=== PATIENT | female | born 1950 | race Caucasian/White ===

== ENCOUNTER 2021-11-13 20:25 | Inpatient (IN) | payer MEDICARE, SELFPAY ==
--- NOTE | 2021-11-13 20:27 | XRR_ITS ---
PROCEDURE INFORMATION: Exam: XR Right Hip Exam date and time: 11/13/2021 8:36 PM Age: 71 years old Clinical indication: Hip pain; Right hip; Additional info: Hip pain, fall TECHNIQUE: Imaging protocol: XR Right hip. Views: 1 view hip with pelvis when performed. COMPARISON: No relevant prior studies available. FINDINGS: Bones/joints: There is cortical irregularity at the right femoral head neck junction suspicious for probable femoral neck fracture. Assessment is limited due to suboptimal projection. No obvious dislocation. Right hip joint space is maintained on this nonweightbearing exam. Mild acetabular spurring. Probable osteopenia. Soft tissues: Unremarkable. Other findings: Two views submitted. XR/XR hip RT 2-3V wo/w pel* [id number] IMPRESSION: Somewhat limited exam with probable right femoral neck fracture. CT correlation is recommended.
[2021-11-13 20:29] VITALS: BP 158/80; PULSE 92; RESP 20; TEMP 37.1; O2SAT 98; BMI 30.5
--- NOTE | 2021-11-13 20:39 | ED_ITS ---
HPI - General Adult General: Chief complaint: Fall Stated complaint: FALL RIGHT HIP PAIN Time Seen by Provider: 11/13/21 20:27 History of Present Illness: 71-year-old female with no known past medical history presented to emergency room after a ground-level fall which occurred in 1917. Patient tells me that she was working when she slipped and fell onto the right side. Patient denies any head injury, denies any anticoagulation use. Since then, pain, pain has been complaining of right-sided hip pain. Patient has not been on ambulate. Denies any associated chest pain, shortness, palpitations or lightheadedness before the episode of fall. Onset:715pm Duration:ongoing Location:home Severity:moderate Associated symptoms: Deny chest pain, dyspnea, nausea, rash, palpitations or vomiting Review of Systems Const: Denies: fever(s) or chills Eyes: Denies: change in vision ENMT: Denies: mouth pain Card: Denies: chest pain or palpitations Resp: Denies: dyspnea or non-productive cough GI: Denies: abdominal pain, nausea, vomiting or diarrhea : Denies: dysuria Musc: Reports: extremity pain (+r hip pain) Skin/Breast: Denies: rash or new lesions Neuro: Denies: weakness in extremities Psych: Reports: other (Normal mood) Adal/Lymph: Denies: easy bruising PFS ED PFSH: Medical History HTN (hypertension) No pertinent past medical history Psoriasis Surgical History No history of previous surgery Family History Denies family history of Diabetes Cancer Social History Smoking and tobacco status: never smoked Alcohol intake: never Physical Exam Const: COMMON NORMALS: alert HENMT: COMMON NORMALS: atraumatic HEAD & SCALP: atraumatic MOUTH: moist mucous membranes not abnormal Eye: COMMON NORMALS: EOMs intact bilaterally and conjunctivae normal CONJUNCTIVA: Yes conjunctivae normal Neck/C-Spine: COMMON NORMALS: full ROM and supple Resp: COMMON NORMALS: normal respiratory effort and clear to auscultation bilaterally AUSCULTATION: clear to auscultation bilaterally Cardio: COMMON NORMALS: regular rate RATE: regular rate GI: COMMON NORMALS: Soft to palpation and non-tender PALPATION: Yes Soft to palpation Extremity: NARRATIVE EXTREMITY EXAM: + Decreased range of motion right hip due to pain, right leg rotated and shortened, 2+ DP/PT pulses in the affected extremity, neurovascular sensation intact in the right lower extremity Neuro: SENSORIUM/ORIENTATION: Yes alert MOTOR EXAM: No Abnormal motor strength present and Other motor observations present (no focal motor deficits) Psych: COMMON NORMALS: speech normal SPEECH: Yes normal speech MOOD & AFFECT: Yes euthymic mood Course Vital Signs: Vital signs: Vital Signs Temperature 98.0 F 11/16/21 07:52 Pulse Rate 80 11/16/21 10:09 Respiratory Rate 17 11/16/21 07:52 Blood Pressure 125/77 11/16/21 10:09 Pulse Oximetry 93 11/16/21 07:52 MDM - General Adult Medical Decision Making 71-year-old female presenting to the emergency room with concerns for right hip pain after an episode mechanical fall. Patient has a shortened externally rotated right leg with decreased range of motion right hip. Patient is neurovascularly intact in the right lower extremity. X-ray showed possible R sided femoral neck fx. CT showed acute findings femoral neck fracture. Case was discussed with Dr. Fontenot who will evaluate patient tomorrow morning. Preop labs ordered. Disposition: admission Lab Data : 11/16/21 05:19 11/15/21 02:34 Radiology Impressions Hip/Pelvis X-Ray 11/13/21 20:27 IMPRESSION: Somewhat limited exam with probable right femoral neck fracture. CT correlation is recommended. Hip CT 11/13/21 21:43 IMPRESSION: 1. Acute femoral neck fracture as described. 2. Other nonacute findings as described above Hip X-Ray 11/15/21 09:40 IMPRESSION: 1. Right total hip prosthesis in place. Laboratory Results WBC 8.6 10^3/uL (4.0-10.0) 11/13/21 20:35 RBC 4.69 10^6/uL (4.1-5.3) 11/13/21 20:35 Hgb 13.6 g/dL (11.5-15.3) 11/13/21 20:35 Hct 41.2 % (37.0-47.0) 11/13/21 20: MCV 87.8 fl (81-99) 11/13/21 20: MCH 29.0 pg (28.0-34.0) 11/13/21 20: MCHC 33.0 g/dL (30.0-36.0) 11/13/21 20: RDW 13.0 % (12.1-15.1) 11/13/21 20:35 Plt Count 236 10^3/cmm (130-400) 11/13/21 20:35 MPV 11.1 fL (7.4-10.4) H 11/13/21 20:35 Neut % (Auto) 49.0 % 11/13/21 20: Lymph % (Auto) 33.5 % 11/13/21 20:35 [place] % (Auto) 10.9 % 11/13/21 20:35 Eos % (Auto) 5.4 % 11/13/21 20:35 Baso % (Auto) 0.6 % 11/13/21 20:35 Neut # (Auto) 4.20 10^3/uL (1.8-7.7) 11/13/21 20:35 Lymph # (Auto) 2.9 10^3/uL (0.8-4.8) 11/13/21 20:35 [place] # (Auto) 0.9 10^3/uL (0.2-0.9) 11/13/21 20:35 Eos # (Auto) 0.5 10^3/uL (0.0-0.8) 11/13/21 20:35 Baso # (Auto) 0.1 10^3/uL (0.0-0.1) 11/13/21 20:35 Nucleated RBC % (auto) 0 % 11/13/21: Nucleated RBCs # 0.0 /100WBC 11/13/21 20: PT 13.10 SECONDS (12.1-14.9) 11/13/21 20:35 INR 0.96 (0.8-1.2) 11/13/21 20:35 APTT 27.9 SECONDS (23.9-36.7) 11/13/21 20:35 Sodium 138 mmol/L (136-145) 11/13/21 20:35 Potassium 3.5 mmol/L (3.5-5.1) 11/13/21 20:35 Chloride 101 mmol/L (98-107) 11/13/21 20:35 Carbon Dioxide 25 mmol/L (22-29) 11/13/21 20:35 Anion Gap 15.5 (5-19) 11/13/21 20:35 BUN 18 mg/dL (8-23) 11/13/21 20:35 Creatinine 0.8 mg/dL (0.5-0.9) 11/13/21 20:35 GFR Calculation 70.9 mL/min (90-130) L 11/13/21 20:35 Glucose 99 mg/dL (65-115) 11/13/21 20:35 Calculated Osmolality 288 mOsm/kg (285-295) 11/13/21 20:35 Calcium 10.0 mg/dL (8.5-10.5) 11/13/21 20:35 Imaging Data Other Imaging: Radiologist's impression: [facility] [address] [address] Scan Report Signed Patient: ESTRELLA TEAGUE Unit #: [id number] : 1950 Age/Sex: 71 / F ADM Date: 11/13/21 Loc: ER Room/Bed: Attending Dr: Ordering Provider/Ordering MD: Ani Gonzalez MD Date of Service: 11/13/21 Procedure(s): CT hip RT wo con* [id number] Accession Number(s): [id number] Report Number: [id number] PROCEDURE INFORMATION: Exam: CT Right Lower Extremity Without Contrast, Hip Exam date and time: 11/13/2021 10:02 PM Age: 71 years old Clinical indication: Injury or trauma; Fall; Blunt trauma; Right; Patient HX: Patient fell from standing onto RT hip. C/O pain. Suspected femoral neck fracutre on xray. ; Additional info: Eval FX TECHNIQUE: Imaging protocol: CT of the Right lower extremity without contrast was performed. Exam focused on the hip. Radiation optimization: All CT scans at this facility use at least one of these dose optimization techniques: automated exposure control; mA and/or kV adjustment per patient size (includes targeted exams where dose is matched to clinical indication); or iterative reconstruction. COMPARISON: CR (PELVIS, ) 11/13/2021 8:36 PM RADIATION DOSE METRICS: Total DLP (mGy-cm): 1804.9 FINDINGS: Bones/joints: Well maintained hip joint space on this nonweightbearing exam. Hip joint small osteophytes compatible with osteoarthritis. There is an acute fracture in an oblique orientation in the coronal plane, at the lateral aspect of the femoral head neck junction extending medially to the mid femoral neck. There is minimal impaction and minimal displacement. No dislocation or significant angulation. No other acute displaced fracture is seen in the partially visualized portion of bony pelvis. Probable osteopenia.? Small chronic enthesophytes are present at the ischial tuberosity and greater trochanter.? Chronic sclerosis of the symphysis pubis. Soft tissues: Normal. CT/CT hip RT wo con* [id number] IMPRESSION: 1. Acute femoral neck fracture as described. 2. Other nonacute findings as described above ? Dictated By: Erlinda Christine MD Signed By: Erlinda Christine MD Signed Date/Time: 11/13/212219 DD/ 01 Discharge Plan Discharge Patient Disposition: Admitted As Inpatient Admit Provider: George Yanes Clinical Impression: Acute pain of right hip, Femoral neck fracture Condition: Stable Discharge Diet: Advance as tolerated Discharge Activity: Limit activity as instructed Coding Level of Care Code ED Ui Software Engineer for g Fwd Exam Comprehensive
--- NOTE | 2021-11-13 20:41 | ECG_ITS ---
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 Measurements Intervals [place] Rate: 85 P: 64 NV: 195 QRS: 68 QRSD: 77 T: 64 QT: 369 QTc: 439 Interpretive Statements SINUS RHYTHM No previous ECG available for comparison Electronically Signed On 11-14-2021 22:18:51 CDT by Rivera Patel M.D. [id number]
[2021-11-13 20:50] LABS: Basophils # 0.1 10^3/uL (0.0-0.1); Basophils % 0.6 %; Eosinophils # 0.5 10^3/uL (0.0-0.8); Eosinophils % 5.4 %; Hematocrit 41.2 % (37.0-47.0); Hemoglobin 13.6 g/dL (11.5-15.3); Lymphocytes # 2.9 10^3/uL (0.8-4.8); Lymphocytes % 33.5 %; Mean Corpuscular Volume 87.8 fl (81-99); Mean Platelet Volume 11.1 fL (7.4-10.4); Monocytes # 0.9 10^3/uL (0.2-0.9); Monocytes % 10.9 %; Nucleated Red Blood Cells % 0 %; Platelet Count 236 10^3/cmm (130-400); Red Blood Count 4.69 10^6/uL (4.1-5.3); White Blood Count 8.6 10^3/uL (4.0-10.0)
[2021-11-13 20:52] VITALS: BP 137/93; PULSE 85; RESP 17; O2SAT 99
[2021-11-13 21:17] LABS: INR 0.96 (0.8-1.2); Partial Thromboplastin Time 27.9 SECONDS (23.9-36.7)
[2021-11-13 21:29] LABS: Anion Gap 15.5 (5-19); Blood Urea Nitrogen 18 mg/dL (8-23); Carbon Dioxide 25 mmol/L (22-29); Chloride 101 mmol/L (98-107); Glomerular Filtration Rate 70.9 mL/min (90-130); Glucose 99 mg/dL (65-115); Osmolality Calculated 288 mOsm/kg (285-295); Potassium 3.5 mmol/L (3.5-5.1); Sodium 138 mmol/L (136-145)
--- NOTE | 2021-11-13 21:43 | CTR_ITS ---
PROCEDURE INFORMATION: Exam: CT Right Lower Extremity Without Contrast, Hip Exam date and time: 11/13/2021 10:02 PM Age: 71 years old Clinical indication: Injury or trauma; Fall; Blunt trauma; Right; Patient HX: Patient fell from standing onto RT hip. C/O pain. Suspected femoral neck fracutre on xray. ; Additional info: Eval FX TECHNIQUE: Imaging protocol: CT of the Right lower extremity without contrast was performed. Exam focused on the hip. Radiation optimization: All CT scans at this facility use at least one of these dose optimization techniques: automated exposure control; mA and/or kV adjustment per patient size (includes targeted exams where dose is matched to clinical indication); or iterative reconstruction. COMPARISON: CR (PELVIS, ) 11/13/2021 8:36 PM RADIATION DOSE METRICS: Total DLP (mGy-cm): 1804.9 FINDINGS: Bones/joints: Well maintained hip joint space on this nonweightbearing exam. Hip joint small osteophytes compatible with osteoarthritis. There is an acute fracture in an oblique orientation in the coronal plane, at the lateral aspect of the femoral head neck junction extending medially to the mid femoral neck. There is minimal impaction and minimal displacement. No dislocation or significant angulation. No other acute displaced fracture is seen in the partially visualized portion of bony pelvis. Probable osteopenia. Small chronic enthesophytes are present at the ischial tuberosity and greater trochanter. Chronic sclerosis of the symphysis pubis. Soft tissues: Normal. CT/CT hip RT wo con* [id number] IMPRESSION: 1. Acute femoral neck fracture as described. 2. Other nonacute findings as described above
--- NOTE | 2021-11-13 22:17 | P.HP_ITS ---
Providers/Chief Complaint Primary Care Provider: Leda Guillen DO Chief Complaint: FALL RIGHT HIP PAIN History of Present Illness ESTRELLA TEAGUE is a 71 year old female who does not have significant past medical history presented today with chief complaint of sustaining a fall. 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 She fell on her right side and immediately experienced excruciating pain which prompted her visit to the ER. In the ER she was diagnosed with right hip fracture. Dr. Fontenot consulted and recommended admission to the hospital service. At the time my evaluation patient was not complaining of any complaints, during my clinical evaluation I noticed cardiac murmur systolic in nature and psoriasis which patient endorsed as well. Patient is stating that she has led a very healthy life the only diagnosis she remembers is hypertension. When I questioned her regarding cardiac murmur she said she was told about it in the past but never had any problems secondary to any valvular murmur. She is denying any Previous history of CHF, NM, diabetes. Hip CT scan showing femoral neck fracture We will request echo She was given morphine in the ER Requested Bustillo catheter placement Review of Systems Const: Denies: chills Eyes: Denies: change in vision ENMT: Denies: throat pain Card: Denies: chest pain Resp: Denies: dyspnea GI: Denies: abdominal pain : Denies: flank pain Musc: Denies: neck pain Skin/Breast: Denies: rash Neuro: Denies: headache(s) Psych: Denies: anxiety Endo: Denies: polyuria Adal/Lymph: Denies: easy bruising All/Imm: Denies: urticaria Medications/Allergies Home Medications Medication Instructions Recorded Confirmed Last Taken Type albuterol sulfate 0.63 mg/3 mL 0.63 mg INHALATION Q6H PRN 11/13/21 11/13/21 Unknown History solution for nebulization albuterol sulfate 90 mcg/actuation 2 puff INHALATION QID PRN 11/13/21 11/13/21 Unknown History aerosol inhaler (ProAir HFA) amlodipine 10 mg tablet 10 mg PO DAILY 11/13/21 11/13/21 11/13/21 History aspirin 81 mg tablet,delayed 81 mg PO DAILY 11/13/21 11/13/21 11/13/21 History release cholecalciferol (vitamin D3) 25 25 mcg PO DAILY 11/13/21 11/13/21 11/13/21 History mcg (1,000 unit) capsule (Vitamin D3) hydrochlorothiazide 25 mg tablet 25 mg PO DAILY 11/13/21 11/13/21 11/13/21 History Allergies Allergy/AdvReac Type Severity Reaction Status Date / Time No Known Allergies Allergy Verified 11/13/21 21:14 PFSH Acute PFSH: Medical History HTN (hypertension) No pertinent past medical history Psoriasis Surgical History No history of previous surgery Family History Denies family history of Diabetes Cancer Social History Smoking and tobacco status: never smoked Alcohol intake: never Substance/Drug Use: never Vitals/I&O/Wt Last Vital Signs Temp 98.7 F 11/13/21 20:29 Pulse 85 11/13/21 20:52 Resp 17 11/13/21 20:52 BP 137/93 11/13/21 20:52 Pulse Ox 99 11/13/21 20:52 Weight last 48 hrs Weight 88.451 kg Physical Exam Narrative: Very pleasant elderly female Euvolemic No signs of heart failure Psoriasis plaques noted on extremities Dry skin EOMI, PERRLA Nonfocal neuro exam S1, S2 systolic murmur grade 2/6 right second intercostal space No signs of heart failure Breathing well on room air Saturating well no adventitious rhonchi or crackles Abdomen is soft, Nonfocal neuro exam very pleasant and cooperative Data : 11/13/21 20:35 11/13/21 20:35 A&P Assessment and plan (1) Hip fracture: Status: Acute (2) Femoral neck fracture: Status: Acute Plan Right hip fracture No signs of vascular compromise of the right lower extremity Psoriasis plaque noted Cardiac murmur appreciated during clinical exam Will request echo No previous history of surgeries RCRI class I risk No need of preop cardiac work-up patient is very active for her age, Coagulation profile N.p.o. IV fluid hydration Bustillo catheter placement PT evaluation after surgery DVT prophylaxis SCDs Dr. Fontenot consulted Continue amlodipine Hold hydrochlorothiazide Full code N.p.o. Attestations Medical Necessity Statement*: For hip fracture intervention patient will need more than 2 midnight stay in the hospital Time Spent in Patient Care: 40min Coding Level of Care Code Acute Box Blank Machine Feeder for Anahy Fwd Diagnoses Hip fracture S72.009A Femoral neck fracture S72.009A
[2021-11-13 23:42] VITALS: BMI 33.2
[2021-11-14] VITALS (10 sets, daily range): BP systolic 122–163; BP diastolic 66–89; PULSE 74–84; RESP 14–18; TEMP 36.6–37.4; O2SAT 92–96
--- NOTE | 2021-11-14 00:19 | USCV_ITS ---
ESTRELLA TEAGUE Age: 71 Gender: F : 1950 Exam Date: 11/14/2021 01:14 Ordering Phys: George Yanes MD Technologist: JESSICA [place] [facility] [place]: aortic murmur on exam BP: / HR: 90 Rhythm: Sinus Technical Quality: Adequate MEASUREMENTS (Male / Female) Normal Values 2D ECHO LV Diastolic Diameter PLAX 4.5 cm 4.2 - 5.9 / 3.9 - 5.3 cm LV Systolic Diameter PLAX 3.0 cm IVS Diastolic Thickness 1.3 cm 0.6 - 1.0 / 0.6 - 0.9 cm IVS Systolic Thickness 1.7 cm LVPW Diastolic Thickness 1.6 cm 0.6 - 1.0 / 0.6 - 0.9 cm LVPW Systolic Thickness 1.8 cm LVOT Diameter 1.9 cm LV Ejection Fraction 2D Teich 45.7 % LV Ejection Fraction MOD 2C 57.9 % LV Ejection Fraction 2C AL 58.6 % LA Diameter 3.9 cm LA Width 4.3 cm LA Height 4.6 cm RA Width 3.0 cm RA Height 5.0 cm Aorta at Sinotubular Diameter 2.2 cm M-MODE Aortic Annulus Diameter 1.9 cm LA Ao Ratio MM 2.0 MV E Point Septal Separation 0.2 cm DOPPLER AV Peak Velocity 223.7 cm/s LVOT Peak Velocity 105.0 cm/s AV Area Cont Eq vti 2.3 cm squared AV Area Cont Eq pk 1.3 cm squared MV Peak Velocity 119.0 cm/s MV Area PHT 3.7 cm squared Mitral E to A Ratio 0.8 MV E' Velocity 48.5 cm/s Mitral E to MV E' Ratio 12.9 Mitral E to LV E' Lateral Ratio 13.2 Mitral E to LV E' Septal Ratio 12.5 TR Peak Velocity 233.0 cm/s TR Peak Gradient 21.7 mmHg TR Mean Velocity 125.2 cm/s TR Mean Gradient 8.1 mmHg TR Velocity Time Integral 46.3 cm Right Atrial Pressure 10.0 mmHg Pulmonary Artery Systolic Pressu 31.7 mmHg PV Peak Velocity 103.7 cm/s RV Acceleration Time 0.1 s RV Ejection Time 0.3 s RV AcT/ET 0.3 FINDINGS Left Ventricle Normal left ventricular size. LV systolic function is normal with EF of 55-60%. No regional wall motion abnormalities. Grade 1 diastolic dysfunction Right Ventricle The right ventricle is normal in size and function. Right Atrium The right atrium is normal in size. Left Atrium The left atrium is normal in size. Mitral Valve Mild mitral annular calcification without significant stenosis or prolapse. There is trace mitral regurgitation. Aortic Valve Not well visualized. Mild aortic stenosis with mean gradient across the aortic valve of 11mmHg. There is no aortic regurgitation. Tricuspid Valve Structurally normal tricuspid valve without significant stenosis or regurgitation. Insufficient TR jet to calculate RVSP Pulmonic Valve Not well visualized Pericardium Normal pericardium without effusion. Aorta Normal ascending aorta dimension. CONCLUSIONS LV systolic function is normal with EF of 55-60% Grade 1 diastolic dysfunction Mild mitral annular calcification. Trace mitral regurgitation Mild aortic stenosis No comparison studies are available Rivera Patel MD (Electronically Signed) Final Date: 14 November 2021 13:43 S
[2021-11-14] MEDS: sodium chloride 0.9% 1,000 ML 75 ML IV (06:04)
[2021-11-14 06:23] LABS: Basophils % 0.3 %; Eosinophils # 0.3 10^3/uL (0.0-0.8); Eosinophils % 3.5 %; Hematocrit 39.1 % (37.0-47.0); Lymphocytes # 1.9 10^3/uL (0.8-4.8); Lymphocytes % 20.3 %; Mean Corpuscular HGB Conc 33.2 g/dL (30.0-36.0); Mean Corpuscular Hemoglobin 29.4 pg (28.0-34.0); Mean Corpuscular Volume 88.5 fl (81-99); Mean Platelet Volume 11.6 fL (7.4-10.4); Monocytes # 0.9 10^3/uL (0.2-0.9); Monocytes % 9.8 %; Neutrophils # 6.18 10^3/uL (1.8-7.7); Neutrophils % 65.9 %; Nucleated Red Blood Cells % 0 %; Platelet Count 205 10^3/cmm (130-400); Red Blood Count 4.42 10^6/uL (4.1-5.3); Red Cell Distribution Width 12.9 % (12.1-15.1); White Blood Count 9.4 10^3/uL (4.0-10.0)
[2021-11-14 06:44] LABS: Anion Gap 17.3 (5-19); Blood Urea Nitrogen 15 mg/dL (8-23); Calcium 9.2 mg/dL (8.5-10.5); Carbon Dioxide 22 mmol/L (22-29); Chloride 102 mmol/L (98-107); Glucose 110 mg/dL (65-115); Osmolality Calculated 287 mOsm/kg (285-295); Potassium 3.3 mmol/L (3.5-5.1); Sodium 138 mmol/L (136-145)
[2021-11-14] MEDS: amlodipine 10 mg Tablet PO (08:09)
[2021-11-14 08:10] LABS: Fibrinogen 334 mg/dL (174-498); Platelet Count 205 10^3/cmm (130-400)
--- NOTE | 2021-11-14 10:05 | PM.CONSULT ---
Providers/Reason For Consult Consulting Physician/Specialty*: Lui Fontenot MD; orthopedic surgery Reason for Consult*: Right hip fracture Attending Physician: Tez Metzger MD Primary Care Provider: Leda Guillen DO History of Present Illness History of Present Illness ESTRELLA TEAGUE is a 71 year old female who apparently fell yesterday evening on a wet floor at home with immediate pain and inability to bear weight on her right hip. She was transferred to our emergency room where radiographs revealed a right femoral neck fracture. States prior to this she was very active. She was a online health and fitness coach. Fully ambulatory about her home and community and enjoyed working. No previous history of extremity pain Medications/Allergies Home Medications Medication Instructions Recorded Confirmed Last Taken Type albuterol sulfate 0.63 mg/3 mL 0.63 mg INHALATION Q6H PRN 11/13/21 11/13/21 Unknown History solution for nebulization albuterol sulfate 90 mcg/actuation 2 puff INHALATION QID PRN 11/13/21 11/13/21 Unknown History aerosol inhaler (ProAir HFA) amlodipine 10 mg tablet 10 mg PO DAILY 11/13/21 11/13/21 11/13/21 History aspirin 81 mg tablet,delayed 81 mg PO DAILY 11/13/21 11/13/21 11/13/21 History release cholecalciferol (vitamin D3) 25 25 mcg PO DAILY 11/13/21 11/13/21 11/13/21 History mcg (1,000 unit) capsule (Vitamin D3) hydrochlorothiazide 25 mg tablet 25 mg PO DAILY 11/13/21 11/13/21 11/13/21 History Allergies Allergy/AdvReac Type Severity Reaction Status Date / Time No Known Allergies Allergy Verified 11/13/21 21:14 Current Medications Generic Name Dose Route Start Last Admin Trade Name Freq PRN Reason Stop Dose Admin Amlodipine Besylate 10 mg 11/14/21 09:00 11/14/21 08:09 Amlodipine 10 Mg Tablet PO 10 mg DAILY MINA Administration Sodium Chloride 1,000 mls @ 75 mls/hr 11/14/21 07:00 11/14/21 06:04 Sodium Chloride 0.9% IV 75 mls/hr .[id number] MINA Administration Senna/Docusate Sodium 1 tab 11/14/21 09:00 11/14/21 08:09 Sennosides-Docusate Tablet PO Not Given DAILY MINA PFSH Acute PFSH: Medical History HTN (hypertension) No pertinent past medical history Psoriasis Surgical History No history of previous surgery Family History Denies family history of Diabetes Cancer Social History Smoking and tobacco status: never smoked Alcohol intake: never Substance/Drug Use: never Vitals/I&O/Wt Last Vital Signs Temp 97.9 F 11/14/21 03:51 Pulse 84 11/14/21 09:28 Resp 17 11/14/21 09:28 BP 156/83 11/14/21 03:51 Pulse Ox 94 11/14/21 09:28 11/13/21 11/14/21 11/14/21 22:59 06:59 14:59 Output Total 800 / 800 Balance -800 / -800 Weight last 48 hrs Weight 212 lb Weight 195 lb Physical Exam Narrative: Is supine in the bed. She is pleasant to conversation. She is alert and oriented to person place and time and answers questions appropriately. She has slight shortening and external rotation of the right hip. He has pain with any internal and external rotation of the right hip. He has a strong palpable dorsalis pedis pulse. Will flex and extend her toes and her ankle on the right. Sensation is intact to light touch. Urinary Catheter Management: Bustillo: Cath Placed During This Visit: yes Reason for Continuing Indwelling Catheter: Required Immobilization for Trauma or Surgery or Anesthesia Urinary Catheter Date of Insertion: 11/14/21 Urinary Catheter Time of Insertion: 00:41 Data : 11/14/21 05:18 11/14/21 05:18 Xray Ortho: My impression: 2 views of the right hip are the interpreted dated 11/13/2021. The patient has a tear of the right femoral neck. Displacement is difficult to determine on plain radiographs Other CT: My impression: CT scan is reviewed of the right hip. The patient has a fracture of the femoral neck. The fracture is impacted and significant valgus and a posterior angulation. A&P Assessment and plan (1) Femoral neck fracture: I discussed management of displaced femoral neck fracture is in active individuals the patient and her immediate family in the room. I told her that we could consider open reduction internal fixation with pins however with the degree of displacement I think there is a high risk of nonunion malunion and avascular necrosis. This also require prolonged period of limited weightbearing. Typically bipolar arthroplasty is an option for more elderly people however Estrella is extremely active and I am not certain that would be the best option in relieving all of her pain. I discussed total hip arthroplasty with the patient models. I made her aware of risk with the procedure. I made aware of the postoperative recovery. I discussed requirements for postoperative exercise/rehabilitation program. I discussed risk of a possible instability or dislocation. I discussed the possibility of continued pain. I discussed risk of component failure loosening the need for revision. I discussed the magnitude of the procedure with the patient. I made them aware of risk of surgery to possibility continued pain. I discussed risk of bleeding and infection. I made them aware that infection could result in removal of the components and extensive reconstruction procedures. I discussed risk of deep venous thromboses and pulmonary emboli and need for anticoagulation in some patients, which can cause increased swelling or bleeding. Will be managed with aspirin and sequential compression dressings postoperatively. I discussed risks with any anesthetic procedure. He has no contraindications to TXA. He will be given 1 g preoperatively. The patient has a at home and does not wish to consider shelter. Alternative nonoperative measures were discussed. The patient feels totally exhausted what nonoperative measures they're comfortable with and wishes to proceed with total hip arthroplasty. The patient will be scheduled for a Tiff MDM shell and Accolade II stem. .I discussed risk of deep venous thromboses and pulmonary emboli even with anticoagulation. I discussed anesthetic risk with surgery. The patient understands all her alternativesand agrees to proceed with total hip arthroplasty. They expressed good understanding was offered the opportunity for her questions to be answered. Status: Acute Coding Level of Care Code Acute Dictaphone Operator for g Fwd Diagnoses Femoral neck fracture S72.009A
[2021-11-14 10:49] LABS: Iron 42 ug/dL (37-145); Percent Saturation 17.9 % (20-50); Total Iron Binding Capacity 234 mcg/dl; Unsaturated Iron Binding 192 ug/dL (112-347)
[2021-11-14 10:59] LABS: Add Urine Microscopic? NO; Charge for UA Resulting for Rev
[2021-11-14 11:02] LABS: Thyroid Stimulating Hormone 1.52 uIU/mL (0.27-4.20)
[2021-11-14 11:09] LABS: Bilirubin Urine Neg (Negative); Blood Urine Neg (Negative); Glucose Urine UA Norm (Normal); Ketones Urine 1+ (Negative); Leukocyte Esterase Urine Negative (Negative); Nitrate Urine Negative (Negative); Protein Urine Neg (Negative); Urine Appearance Clear (CLEAR); Urine Color Yellow (Yellow); Urobilinogen Urine Neg (Negative); pH Urine 8 (5-7)
[2021-11-14] MEDS: pantoprazole DR 40 mg Tablet PO (11:50)
[2021-11-14] MEDS: cyclobenzaprine 10 mg Tablet 5 MG PO ×2 (11:50→17:19)
--- NOTE | 2021-11-14 12:19 | PC.CHAP ---
Pastoral Care Encounter/Spiritual Assessment Type of Contact [] Declined harvest worker visit [] Patient/Family/Request visit [] Outpatient visit [] Follow-up visit [] Physician referral [] Code/Alert [x] Routine visit [] Staff referral [] Actively dying [] Patient sleeping [] Family support [] [] Out of room [] Palliative care [] [] Receiving care in room [] Pre-surgical visit [] Trauma [] Long length of stay [] ICU visit [] Other: Relational/Emotional Strength [x] Patient feels connected with others/family/visitors/staff [] Distress [] Loneliness/isolation [] Abandonment Spirituality of Patient [x] Person of Alondra [x] Attends Orthodoxy of their Alondra [x] Believes in Prayer [] Reads Bible or Buddhist materials [] There are Spiritual issues to be addressed Chopped Strand Operator Interventions [x] Prayer x[x] Active listening [x] Non-anxious presence x] Spiritual/emotional support [] Crisis/trauma care [] Spiritual counseling [] Bereavement support [] Provided bereavement packet [] Provided Bible/devotional materials [] Provided toy/stuffed animal, coloring book to patient or family member [] Provided Communion [] Anointing/Margie [] Salvation [x] Completed spiritual assessment [] Other: Impact on Illness or Injury [] Angry [] Fearful [] Anxious [] Often cries [] Exhaustion [] Unable to work [] Unable to attend hindu [] Unable to walk/stand [] Unable to read [] Unable to drive [] Unable to eat/drink [] Unable to sleep [] Unable to be with family [] Patient intubated [] Other: Summary Time spent with patient 15 min
--- NOTE | 2021-11-14 15:59 | PM.PN ---
Subjective Subjective: Admitted overnight. Family at bedside. Denies any nausea vomiting, headache. States pain is well controlled. Asking for no pain medications. Discussed in detail with her regarding need for at least Flexeril to help with muscle spasm. Patient is agreeable for the same. Vitals/I&O/Wt Last Vital Signs Temp 98.3 F 11/14/21 10:10 Pulse 81 11/14/21 12:00 Resp 16 11/14/21 12:00 BP 139/81 11/14/21 12:00 Pulse Ox 94 11/14/21 12:00 11/14/21 11/14/21 11/14/21 06:59 14:59 22:59 Intake Total 240 / 240 Output Total 800 / 800 Balance -800 / -800 240 / 240 Weight last 48 hrs Weight 96.162 kg Weight 88.451 kg Physical Exam Narrative: Very pleasant elderly female Euvolemic No signs of heart failure Psoriasis plaques noted on extremities Dry skin EOMI, PERRLA Nonfocal neuro exam S1, S2 systolic murmur grade 2/6 right second intercostal space No signs of heart failure Breathing well on room air Saturating well no adventitious rhonchi or crackles Abdomen is soft, Nonfocal neuro exam very pleasant and cooperative Urinary Catheter Management: Bustillo: Cath Placed During This Visit: yes Reason for Continuing Indwelling Catheter: Required Immobilization for Trauma or Surgery or Anesthesia Urinary Catheter Date of Insertion: 11/14/21 Urinary Catheter Time of Insertion: 00:41 Data : 11/14/21 05:18 11/14/21 05:18 A&P Assessment and plan (1) Hip fracture: Orthopedics consulted. Plan for ORIF on 11/15. Anticoagulation, perioperative antibiotics, physical therapy as per orthopedic team. Will monitor hemoglobin. RCRI class I risk. [place] 5 mg every 6 hours as needed for pain, tramadol 50 mg every 8 hours as needed. Flexeril 5 mg twice daily for now. Status: Acute (2) Femoral neck fracture: Status: Acute Plan Protonix OPD prophylaxis. SCDs for DVT prophylaxis. Full code. Regular diet, n.p.o. after midnight. Attestations Medical Necessity Statement*: Requires further hospitalization for management of hip fracture needing ORIF Time Spent in Patient Care: Greater than 35 minutes Coding Level of Care Code Acute Fiscal Services Director for [facility] Fwd Diagnoses Hip fracture S72.009A Femoral neck fracture S72.009A
--- NOTE | 2021-11-14 19:20 | PC.NURSE ---
Report to Janis LEE at this time.
[2021-11-15] VITALS (26 sets, daily range): BP systolic 94–146; BP diastolic 63–96; PULSE 60–90; RESP 16–18; TEMP 36.3–37.1; O2SAT 93–99
[2021-11-15 02:59] LABS: Basophils # 0.1 10^3/uL (0.0-0.1); Basophils % 0.6 %; Eosinophils # 0.8 10^3/uL (0.0-0.8); Eosinophils % 9.4 %; Hematocrit 39.3 % (37.0-47.0); Hemoglobin 12.6 g/dL (11.5-15.3); Lymphocytes # 2.1 10^3/uL (0.8-4.8); Lymphocytes % 25.6 %; Mean Corpuscular HGB Conc 32.1 g/dL (30.0-36.0); Mean Corpuscular Hemoglobin 29.3 pg (28.0-34.0); Mean Corpuscular Volume 91.4 fl (81-99); Monocytes % 11.8 %; Neutrophils # 4.37 10^3/uL (1.8-7.7); Neutrophils % 52.2 %; Nucleated Red Blood Cells % 0 %; Platelet Count 181 10^3/cmm (130-400); Red Cell Distribution Width 13.2 % (12.1-15.1); White Blood Count 8.4 10^3/uL (4.0-10.0)
[2021-11-15 03:31] LABS: Chol HDL Ratio 3.69 mg/dL (0.0-4.40); Cholesterol 155 mg/dL (0-200); HDL Cholesterol 42 mg/dL (60-100); LDL Cholesterol Calculated 95 mg/dL (50-129); Magnesium 1.9 mg/dL (1.7-2.3); Phosphorus 3.1 mg/dL (2.5-4.5); Triglycerides 92 mg/dL (0-150); VLDL Cholestrol Calculation 18 mg/dL (0-30)
[2021-11-15 03:33] LABS: Alanine Aminotransferase 9 U/L (0-33); Albumin Level 3.4 g/dL (3.5-5.2); Alkaline Phosphatase 47 IU/L (35-105); Anion Gap 12.5 (5-19); Aspartate Amino Transferase 15 U/L (0-32); Blood Urea Nitrogen 12 mg/dL (8-23); Calcium 7.8 mg/dL (8.5-10.5); Carbon Dioxide 22 mmol/L (22-29); Chloride 109 mmol/L (98-107); Globulin 2.9 g/dL (1.3-4.6); Glomerular Filtration Rate 98.8 mL/min (90-130); Glucose 104 mg/dL (65-115); Osmolality Calculated 290 mOsm/kg (285-295); Potassium 3.5 mmol/L (3.5-5.1); Sodium 140 mmol/L (136-145); Total Bilirubin 1.4 mg/dL (0.15-1.2); Total Protein 6.3 g/dL (6.6-8.7)
[2021-11-15 03:36] LABS: Estmated Average Glucose 120; Hemoglobin A1C 5.8 % (4.0-6.0)
[2021-11-15] MEDS: sodium chloride 0.9% 1,000 ML 75 ML IV (04:58)
--- NOTE | 2021-11-15 07:02 | P.ANESASSM_ITS ---
Pre-Anesthetic Assessment Height/Weight: Height 1.7 m Weight 96.162 kg Temp Pulse Resp BP Pulse Ox 98.6 F 85 16 146/96 94 11/15/21 06:15 11/15/21 06:15 11/15/21 06:15 11/15/21 06:15 11/15/21 06:15 Preop Diagnosis: Femoral neck fracture Operation Date: 11/15/21 07:00 Proposed Procedures p Total Hip Arthroplasty(Right) - Lui Fontenot MD Familial anesthetic complications: None Was Beta Sathya taken within 24 hours: N/A Was Clonidine taken within 24 hours: N/A Last intake: Intake Last Liquid Date 11/14/21 Last Liquid Time 22:00 Last Solid Date 11/14/21 Last Solid Time 17:00 Social No alcohol and No tobacco Exam alert, oriented x 3, clear to auscultation bilaterally and regular rate & rhythm Airway Submandibular: within normal limits Cervical ROM: within normal limits Mallampati: Class II Dentition: false Pulmonary Chronic Obstructive Pulmonary Disease CV/HEM Hypertension Metabolic Morbid Obesity Anesthetic Plan ASA status: 3 Anesthesia: Regional (specify below) (SAB) Medications/Allergies Home Medications Medication Instructions Recorded Confirmed Last Taken Type albuterol sulfate 0.63 mg/3 mL 0.63 mg INHALATION Q6H PRN 11/13/21 11/13/21 U nknown History solution for nebulization albuterol sulfate 90 mcg/actuation 2 puff INHALATION QID PRN 11/13/21 11/13/21 Unknown History aerosol inhaler (ProAir HFA) amlodipine 10 mg tablet 10 mg PO DAILY 11/13/21 11/13/21 11/13/21 History aspirin 81 mg tablet,delayed 81 mg PO DAILY 11/13/21 11/13/21 11/13/21 History release cholecalciferol (vitamin D3) 25 25 mcg PO DAILY 11/13/21 11/13/21 11/13/21 History mcg (1,000 unit) capsule (Vitamin D3) hydrochlorothiazide 25 mg tablet 25 mg PO DAILY 11/13/21 11/13/21 11/13/21 History Allergies Allergy/AdvReac Type Severity Reaction Status Date / Time No Known Allergies Allergy Verified 11/13/21 21:14 Current Medications Generic Name Dose Route Start Last Admin Trade Name Freq PRN Reason Stop Dose Admin Amlodipine Besylate 10 mg 11/14/21 09:00 11/14/21 08:09 Amlodipine 10 Mg Tablet PO 10 mg DAILY MINA Administration Cyclobenzaprine HCl 5 mg 11/14/21 18:00 11/14/21 17:19 Cyclobenzaprine 10 Mg Tablet PO 5 mg BID MINA Administration Sodium Chloride 1,000 mls @ 75 mls/hr 11/14/21 07:00 11/15/21 04:58 Sodium Chloride 0.9% IV 75 mls/hr .[id number] MINA Administration Pantoprazole Sodium 40 mg 11/14/21 10:15 11/14/21 11:[address] 40 Mg Tablet PO 40 mg DAILY MINA Administration Senna/Docusate Sodium 1 tab 11/14/21 09:00 11/14/21 08:09 Sennosides-Docusate Tablet PO Not Given DAILY [facility] Anesthesia Medical History HTN (hypertension) No pertinent past medical history Psoriasis Surgical History No history of previous surgery Family History Denies family history of Diabetes Cancer Social History Smoking and tobacco status: never smoked Alcohol intake: never Substance/Drug Use: never Data Anesthesia : 11/15/21 02:34 11/15/21 02:34 Short CBC 11/13/21 11/14/21 11/14/21 Range/Units 20:35 05:18 05:18 WBC 8.6 9.4 (4.0-10.0) 10^3/uL Hgb 13.6 13.0 (11.5-15.3) g/dL Hct 41.2 39.1 (37.0-47.0) % MCV 87.8 88.5 (81-99) fl Plt Count 236 205 205 (130-400) 10^3/cmm Neut % (Auto) 49.0 65.9 % Neut # (Auto) 4.20 6.18 (1.8-7.7) 10^3/uL 04/21/22 Range/Units 02:34 WBC 8.4 (4.0-10.0) 10^3/uL Hgb 12.6 (11.5-15.3) g/dL Hct 39.3 (37.0-47.0) % MCV 91.4 (81-99) fl Plt Count 181 (130-400) 10^3/cmm Neut % (Auto) 52.2 % Neut # (Auto) 4.37 (1.8-7.7) 10^3/uL BMP 11/13/21 11/14/21 11/15/21 20:35 05:18 02:34 Sodium 138 138 140 Potassium 3.5 3.3 L 3.5 Chloride 101 102 109 H Carbon Dioxide 25 22 22 BUN 18 15 12 Creatinine 0.8 0.5 0.6 Glucose 99 110 104 Calcium 10.0 9.2 7.8 L Liver Function 11/15/21 Range/Units 02:34 Total Bilirubin 1.4 H (0.15-1.2) mg/dL AST 15 (0-32) U/L ALT 9 (0-33) U/L Alkaline Phosphatase 47 (35-105) IU/L Albumin 3.4 L (3.5-5.2) g/dL Urine 11/14/21 Range/Units 10:35 Urine Color Yellow (Yellow) Urine Appearance Clear (CLEAR) Urine pH 8 H (5-7) Ur Specific [place] 1.010 (1.005-1.030) Urine Protein Neg (Negative) Urine Glucose (UA) Norm (Normal) Urine Ketones 1+ H (Negative) Urine Nitrate Negative (Negative) Urine Bilirubin Neg (Negative) Ur Leukocyte Esterase Negative (Negative) Coags 11/13/21 11/14/21 20:35 05:18 PT 13.10 14.30 INR 0.96 1.10 APTT 27.9 28.0 Fibrinogen 334 Cardiac Studies: Echocardiogram 11/14/21
[2021-11-15] MEDS: sodium chloride 0.9% 1,000 ML 30 ML (07:03)
--- NOTE | 2021-11-15 09:40 | XR_ITS ---
WS: [id number] Exam: XR hip RT 1V wo/w pel [id number] Date/Time of Exam: 11/15/2021 9:40 AM Reason For Exam: right total hip Right total hip prosthesis has been placed. Postoperative changes in the adjacent soft tissues. XR/XR hip RT 1V wo/w pel [id number] IMPRESSION: 1. Right total hip prosthesis in place.
--- NOTE | 2021-11-15 09:40 | PM.OP ---
Operative Report Date of procedure: November 15, 2021 Pre-op diagnosis: Preop Diagnosis Displaced emoral neck fracture Post-op diagnosis: same Post-op diagnosis: Same Post-op findings: Same Procedure done: Right total hip arthroplasty Implants: 1) Patriot 54 mm Trident 2 cluster acetabular shell 2) Size 6 Tiff 127 degree neck angle Accolade C stem 3} 28mm -4 ceramic femoral head 4} MDM metal liner Pathology: none sent Surgeon: Lui Fontenot Maintenance Of Way Supervisor: Gus Loving Maintenance Of Way Supervisor: The physician's legal document assistant assisted with positioning and exposure including during the time of implantation of final implants. He assisted with wound closure and dressing application. Anesthesia: Nerve Block (Spinal) Estimated blood loss (mL): 250 Complications: None Condition: stable Disposition: PACU Procedure: The patient was taken to the operating room and anesthesia provided by the anesthesia service. The patient was placed in the lateral position on a pegboard. A timeout was performed. The patient was draped in the usual fashion. A 15 cm long incision was made beginning just proximal to the greater trochanter and extending posteriorly to a point just distal to the trochanter on the posterior border of the trochanter. Dissection was carried down with electrocautery through the subcutaneous fat to the fascia chika which was divided proximally and distally with curved scissors. The anterior two thirds of the gluteus medius and minimus were elevated off the hip with electrocautery. The capsule was divided in a H-like fashion. The hip was dislocated and a neck cut made just above the level of the lesser trochanter. Exposure of the acetabulum was facilitated with the acetabular retractors. Remnants of labrum and peripheral osteophytes were removed with electrocautery and a rongeur. A reamer 2 mm under the size the femoral head was utilized to ream medially to the base of the palm and are. Reaming was then increased in 1 mm intervals until a healthy rim a trabecular bone was encountered. The rim was touched with the reamer the size of the final acetabular shell to be placed. The bone was a bit softer so we proceeded with a cluster shell to allow the placement of an additional screw. A final 54 mm acetabular cup of the same size as the final reaming was press-fit into place. A 35 mm posterior superior screw was placed. The ADM liner was secured. Attention was then focused on the femur. The canal was localized with a canal finder. Broaching was then accomplished until reasonable fill of the canal was obtained.. A trial reduction with the head and neck provided excellent stability. The wound was irrigated with saline. The canal was cleaned with pulsatile lavage dried. A cement restrictor was placed. The canal was packed with a pressurized cement and the final stem placed. The femoral head was placed and the hip was reduced. The hip was brought through range of motion and found to be free of impingement and stable. The anterior capsule was reapproximated with 1 Ethibond. The gluteus medius and minimus were repaired through bone with 5 Ethibond and reinforced with 1 Ethibond. The fascial chika was closed with a running 0 Stratafix suture. Deep pelvic tissues were closed with 2-0 Stratafix and the skin with a running 4-0 l Stratafix. The skin was covered with a Prineo dressing and op site dressings.
--- NOTE | 2021-11-15 10:28 | SUR.PHASEI ---
0952 Foot pump to left foot. pump on and working
[2021-11-15] MEDS: CELEcoxib 200 mg Capsule PO ×2 (11:28→23:04)
[2021-11-15] MEDS: acetaminophen 500 mg Tablet 1000 MG PO ×2 (11:28→19:38)
[2021-11-15] MEDS: oxyCODONE 5 mg IR Tab/Cap PO ×2 (14:17→18:20)
--- NOTE | 2021-11-15 14:21 | PM.PN ---
Subjective Subjective: Seen on postoperative day. Tolerated procedure well. Denies any nausea, vomiting, headache. Family at bedside. States pain is well controlled. Would like to go home for physical therapy going forward. Vitals/I&O/Wt Last Vital Signs Temp 98.7 F 11/15/21 11:26 Pulse 87 11/15/21 11:27 Resp 16 11/15/21 11:27 BP 125/82 11/15/21 11:26 Pulse Ox 96 11/15/21 11:27 11/14/21 11/15/21 11/15/21 22:59 06:59 14:59 Intake Total 1120 / 1360 1700 / 1700 Output Total 1300 / 1300 220 / 1520 1350 / 1350 Balance -180 / 60 -220 / -160 350 / 350 Weight last 48 hrs Weight 96.162 kg Weight 88.451 kg Physical Exam Narrative: Very pleasant elderly female Euvolemic No signs of heart failure Psoriasis plaques noted on extremities Dry skin EOMI, PERRLA Nonfocal neuro exam S1, S2 systolic murmur grade 2/6 right second intercostal space No signs of heart failure Breathing well on room air Saturating well no adventitious rhonchi or crackles Abdomen is soft, Nonfocal neuro exam very pleasant and cooperative Urinary Catheter Management: Bustillo: Cath Placed During This Visit: yes Reason for Continuing Indwelling Catheter: Required Immobilization for Trauma or Surgery or Anesthesia Urinary Catheter Date of Insertion: 11/14/21 Urinary Catheter Time of Insertion: 00:41 Data : 11/15/21 02:34 11/15/21 02:34 A&P Assessment and plan (1) Hip fracture: Orthopedics consulted. Postoperative day 0. Anticoagulation, perioperative antibiotics, physical therapy as per orthopedic team. Will monitor hemoglobin. RCRI class I risk. [place] 5 mg every 6 hours as needed for pain, tramadol 50 mg every 8 hours as needed. Flexeril 5 mg twice daily for now. Status: Acute (2) Femoral neck fracture: Status: Acute Plan Protonix OPD prophylaxis. SCDs for DVT prophylaxis. Full code. Regular diet Discharge planning: Plan to discharge home with home health and physical therapy going for further rehabitation. Awaiting PT evaluation. Plan for day: Postoperative day 0. Pain control, physical therapy, perioperative antibiotics. Attestations Medical Necessity Statement*: Requires further hospitalization for postoperative care for ORIF. Time Spent in Patient Care: 16 - 35 minutes Coding Level of Care Code Acute Ultrasound Technol for g Fwd Diagnoses Hip fracture S72.009A Femoral neck fracture S72.009A
--- NOTE | 2021-11-15 15:01 | ANE.PACU2 ---
Inpatient post-anesthesia follow up: Airway intact: Yes Vital signs: Temperature 98.3 F Pulse Rate 80 Respiratory Rate 17 Blood Pressure 115/73 Pulse Oximetry 96 Oxygen Delivery Me thod Room Air Oxygen Flow Rate 3 Fraction of Inspir ed Oxygen Hydration adequate: Yes Nausea and vomiting: No Pain level: 1 Mental status: Baseline
[2021-11-15] MEDS: gabapentin 300 mg Capsule PO (17:35)
[2021-11-16] VITALS: BP 120/74; PULSE 76; RESP 18; TEMP 36.7; O2SAT 95
[2021-11-16 04:00] VITALS: BP 123/79; PULSE 75; RESP 17; TEMP 36.7; O2SAT 90
[2021-11-16] MEDS: acetaminophen 500 mg Tablet 1000 MG PO ×2 (04:03→11:50)
[2021-11-16 05:59] LABS: Hemoglobin 10.6 g/dL (11.5-15.3)
[2021-11-16] MEDS: oxyCODONE 5 mg IR Tab/Cap PO (06:08)
--- NOTE | 2021-11-16 07:41 | PM.DCS ---
Discharge Providers Date of Admission: 11/13/21 22:14 Date of Discharge: November 16, 2021 Attending Provider at Admission: George Yanes MD Attending Provider at Discharge: Tez Metzger MD Consults: Lui Delarosa MD; orthopedic surgery Primary Care Provider: Leda Guillen DO Diagnoses at Discharge Discharge Diagnosis (1) Femoral neck fracture: Status: Resolved (2) Status post right hip replacement: Status: Acute Reason for Visit Reason for Visit: FALL RIGHT HIP PAIN Brief History: Ms. Oquendo is a 71-year-old active female who sustained a mechanical fall with a resulting displaced right femoral neck fracture. She was admitted to the hospital and underwent elective total hip arthroplasty due to to her high activity level. Hospital Course Hospital Course The patient tolerated surgery well. They remained hemodynamically stable. They was begun on aspirin and foot pumps for DVT prophylaxis. The patient was mobilized with therapy beginning the day of surgery and by the first postoperative day independent with the walker. As the pain was adequately controlled and they were fully mobile they were discharged home. Physical Exam Narrative: On the day of discharge the hip incision was clean. The incision was free of drainage. They had no particular swelling about the thigh or distal. No distal neurovascular deficits were noted. Urinary Catheter Management: Bustillo: Cath Placed During This Visit: yes, but has since been removed by the nurse Reason for Continuing Indwelling Catheter: Decision to DC Catheter Urinary Catheter Date of Insertion: 11/14/21 Urinary Catheter Time of Insertion: 00:41 Date Urinary Catheter Removed: 11/16/21 Time Urinary Catheter Discontinued: 06:25 Discharge Data Studies Completed and Pending Completed Studies During Hospitalization Category Date Time Status CT hip RT wo con* [id number] Urgent Cat Scan 11/13/21 21:43 Completed XR hip RT 1V wo/w pel [id number] Routine Exams 11/15/21 09:40 Completed XR hip RT 2-3V wo/w pel* [id number] Urgent Exams 11/13/21 20:27 Completed CV. echo complete* [id number] Routine Ultrasound 11/14/21 00:19 Completed Radiology Impressions Hip/Pelvis X-Ray 11/13/21 20:27 IMPRESSION: Somewhat limited exam with probable right femoral neck fracture. CT correlation is recommended. Hip CT 11/13/21 21:43 IMPRESSION: 1. Acute femoral neck fracture as described. 2. Other nonacute findings as described above Hip X-Ray 11/15/21 09:40 IMPRESSION: 1. Right total hip prosthesis in place. Laboratory Results WBC 8.4 10^3/uL (4.0-10.0) 11/15/21 02:34 RBC 4.30 10^6/uL (4.1-5.3) 11/15/21 02:34 Hgb 10.6 g/dL (11.5-15.3) L 11/16/21 05:19 Hct 39.3 % (37.0-47.0) 11/15/21 02:34 MCV 91.4 fl (81-99) 11/15/21 02:34 MCH 29.3 pg (28.0-34.0) 11/15/21 02:34 MCHC 32.1 g/dL (30.0-36.0) 11/15/21 02:34 RDW 13.2 % (12.1-15.1) 11/15/21 02:34 Plt Count 181 10^3/cmm (130-400) 11/15/21 02:34 MPV 11.0 fL (7.4-10.4) H 11/15/21 02:34 Neut % (Auto) 52.2 % 11/15/21 02:34 Lymph % (Auto) 25.6 % 11/15/21 02:34 [place] % (Auto) 11.8 % 11/15/21 02:34 Eos % (Auto) 9.4 % 11/15/21 02:34 Baso % (Auto) 0.6 % 11/15/21 02:34 Neut # (Auto) 4.37 10^3/uL (1.8-7.7) 11/15/21 02:34 Lymph # (Auto) 2.1 10^3/uL (0.8-4.8) 11/15/21 02:34 [place] # (Auto) 1.0 10^3/uL (0.2-0.9) H 11/15/21 02:34 Eos # (Auto) 0.8 10^3/uL (0.0-0.8) 11/15/21 02:34 Baso # (Auto) 0.1 10^3/uL (0.0-0.1) 11/15/21 02:34 Nucleated RBC % (auto) 0 % 11/15/21 02:34 Nucleated RBCs # 0.0 /100WBC 11/15/21 02:34 PT 14.30 SECONDS (12.1-14.9) 11/14/21 05:18 INR 1.10 (0.8-1.2) 11/14/21 05:18 APTT 28.0 SECONDS (23.9-36.7) 11/14/21 05:18 Fibrinogen 334 mg/dL (174-498) 11/14/21 05:18 Sodium 140 mmol/L (136-145) 11/15/21 02:34 Potassium 3.5 mmol/L (3.5-5.1) 11/15/21 02:34 Chloride 109 mmol/L (98-107) H 11/15/21 02:34 Carbon Dioxide 22 mmol/L (22-29) 11/15/21 02:34 Anion Gap 12.5 (5-19) 11/15/21 02:34 BUN 12 mg/dL (8-23) 11/15/21 02:34 Creatinine 0.6 mg/dL (0.5-0.9) 11/15/21 02:34 GFR Calculation 98.8 mL/min (90-130) 11/15/21 02:34 Glucose 104 mg/dL (65-115) 11/15/21 02:34 Estimat Average Glucose 120 11/15/21 02:34 Hemoglobin A1c 5.8 % (4.0-6.0) 11/15/21 02:34 Calculated Osmolality 290 mOsm/kg (285-295) 11/15/21 02:34 Calcium 7.8 mg/dL (8.5-10.5) L 11/15/21 02:34 Phosphorus 3.1 mg/dL (2.5-4.5) 11/15/21 02:34 Magnesium 1.9 mg/dL (1.7-2.3) 11/15/21 02:34 Iron 42 ug/dL (37-145) 11/14/21 05:18 TIBC 234 mcg/dl 11/14/21 05:18 % Saturation 17.9 % (20-50) L 11/14/21 05:18 Unsat Iron Binding 192 ug/dL (112-347) 11/14/21 05:18 Total Bilirubin 1.4 mg/dL (0.15-1.2) H 11/15/21 02:34 AST 15 U/L (0-32) 11/15/21 02:34 ALT 9 U/L (0-33) 11/15/21 02:34 Alkaline Phosphatase 47 IU/L (35-105) 11/15/21 02:34 Total Protein 6.3 g/dL (6.6-8.7) L 11/15/21 02:34 Albumin 3.4 g/dL (3.5-5.2) L 11/15/21 02:34 Globulin 2.9 g/dL (1.3-4.6) 11/15/21 02:34 Triglycerides 92 mg/dL (0-150) 11/15/21 02:34 Cholesterol 155 mg/dL (0-200) 11/15/21 02:34 LDL Cholesterol, Calc 95 mg/dL (50-129) 11/15/21 02:34 Total VLDL Cholesterol 18 mg/dL (0-30) 11/15/21 02:34 HDL Cholesterol 42 mg/dL (60-100) L 11/15/21 02:34 Cholesterol/HDL Ratio 3.69 mg/dL (0.0-4.40) 11/15/21 02:34 TSH 1.52 uIU/mL (0.27-4.20) 11/14/21 05:18 Urine Color Yellow (Yellow) 11/14/21 10:35 Urine Appearance Clear (CLEAR) 11/14/21 10:35 Urine pH 8 (5-7) H 11/14/21 10:35 Ur Specific [place] 1.010 (1.005-1.030) 11/14/21 10:35 Urine Protein Neg (Negative) 11/14/21 10:35 Urine Glucose (UA) Norm (Normal) 11/14/21 10:35 Urine Ketones 1+ (Negative) H 11/14/21 10:35 Urine Blood Neg (Negative) 11/14/21 10:35 Urine Nitrate Negative (Negative) 11/14/21 10:35 Urine Bilirubin Neg (Negative) 11/14/21 10:35 Urine Urobilinogen Neg mg/dL (Negative) 11/14/21 10:35 Ur Leukocyte Esterase Negative (Negative) 11/14/21 10:35 Vitals Last Vital Signs Temp 98.1 F 11/16/21 04:00 Pulse 75 11/16/21 04:00 Resp 17 11/16/21 04:00 BP 123/79 11/16/21 04:00 Pulse Ox 90 11/16/21 04:00 Discharge Plan Discharge Patient Disposition: Home Condition: Stable Prescriptions: New oxycodone 5 mg Tablet 5 mg PO Q4H PRN (Reason: Moderate Pain) 7 Days Qty: 3 0RF acetaminophen 500 mg Tablet 1,000 mg PO Q8H 14 Days Qty: 84 0RF celecoxib 200 mg Capsule 200 mg PO BID@1000,2200 14 Days 0RF Continued albuterol sulfate 0.63 mg/3 mL Solution For Nebulization 0.63 mg INHALATION Q6H PRN (Reason: Shortness Of Breath) 0RF amlodipine 10 mg Tablet 10 mg PO DAILY 0RF hydrochlorothiazide 25 mg tablet 25 mg PO DAILY 0RF ProAir HFA 90 mcg/actuation Hfa Aerosol Inhaler 2 puff INHALATION QID PRN (Reason: Shortness Of Breath) 0RF Aspir-81 81 mg Tablet,Delayed Release (Dr/Ec) 81 mg PO DAILY 0RF Vitamin D3 25 mcg (1,000 unit) Capsule 25 mcg PO DAILY 0RF Discharge Orders: Discharge Order (Routine); Ordered 11/16/21 Ordered By: Lui Delarosa Other Ambulatory Orders: DME: Juan (Order) Location: None Selected Ordered By: Lui Delarosa Referrals: Lui Delarosa MD [Physician] - 1 month Discharge Diet: Advance as tolerated Discharge Activity: Limit activity as instructed Patient Instructions: Opioid Safety Activity Restrictions/Additional Instructions: Okay to shower. No soaking incision in tub Apply FirstIce up to 20 min/hr for pain and swelling Take Celebrex twice a day for the next 15 days for pain , discontinue other anti-inflammatories Take Tylenol 500mg (up to 2 tabs) 3 times a day for mild pain Take oxycodone for breakthrough pain. Exercises per physical therapy. May weight-bear as tolerated on total hip arthroplasty IF HAVE ANY PROBLEMS OR QUESTIONS CALL HOSPITAL TOUR MANAGER AT AND ASK TO HAVE DR. DELAROSA PAGENida. Discharge Attestations Time Spent in Discharge Care*: other Quality Metrics Clinical Quality Measures [ No reported AMI, CVA or VTE this stay] Coding Level of Care Code Acute [facility] note Diagnoses Femoral neck fracture S72.009A Status post right hip replacement Z96.641
[2021-11-16 07:52] VITALS: BP 113/74; PULSE 76; RESP 17; TEMP 36.7; O2SAT 93
[2021-11-16] MEDS: aspirin 81 mg EC Tablet PO (08:14)
--- NOTE | 2021-11-16 09:08 | PC.SOCIAL ---
IMM Update Pg. 2 of IMM updated and reviewed with patient, who verbalized understanding. Copy provided.
[2021-11-16 10:09] VITALS: BP 113/76; BP 115/76; BP 125/77; PULSE 80; PULSE 81
[2021-11-16] MEDS: CELEcoxib 200 mg Capsule PO (11:50)
--- NOTE | 2021-11-16 12:01 | P.PN_ITS ---
Subjective Subjective: o no acute events overnight. Patient denies any nausea vomiting, headache. Has been discharged from orthopedic team. Today morning during physical therapy had some dizziness. Orthostatics were checked later which were normal. Most likely secondary to first-time use of [place]. Patient advised to use pain medications with [place] as less as possible. Vitals/I&O/Wt Last Vital Signs Temp 98.0 F 11/16/21 07:52 Pulse 80 11/16/21 10:09 Resp 17 11/16/21 07:52 BP 125/77 11/16/21 10:09 Pulse Ox 93 11/16/21 07:52 11/15/21 11/16/21 11/16/21 22:59 06:59 14:59 Intake Total 60 / 1760 60 / 1820 300 / 300 Output Total 575 / 1925 340 / 2265 Balance -515 / -165 -280 / -445 300 / 300 Physical Exam Narrative: Very pleasant elderly female Euvolemic No signs of heart failure Psoriasis plaques noted on extremities Dry skin EOMI, PERRLA Nonfocal neuro exam S1, S2 systolic murmur grade 2/6 right second intercostal space No signs of heart failure Breathing well on room air Saturating well no adventitious rhonchi or crackles Abdomen is soft, Nonfocal neuro exam very pleasant and cooperative Urinary Catheter Management: Bustillo: Cath Placed During This Visit: yes, but has since been removed by the nurse Reason for Continuing Indwelling Catheter: Decision to DC Catheter Urinary Catheter Date of Insertion: 11/14/21 Urinary Catheter Time of Insertion: 00:41 Date Urinary Catheter Removed: 11/16/21 Time Urinary Catheter Discontinued: 06:25 Data : 11/16/21 05:19 11/15/21 02:34 A&P Assessment and plan (1) Hip fracture: Orthopedics consulted. Postoperative day 0. Anticoagulation, perioperative antibiotics, physical therapy as per orthopedic team. Will monitor hemoglobin. RCRI class I risk. [place] 5 mg every 6 hours as needed for pain, tramadol 50 mg every 8 hours as needed. Flexeril 5 mg twice daily for now. Status: Acute (2) Femoral neck fracture: Status: Resolved Plan Protonix OPD prophylaxis. SCDs for DVT prophylaxis. Full code. Regular diet On discharge advised to hold off on antihypertensives including amlodipine and hydrochlorothiazide for now. Advised to take blood pressure daily at home for next 1 week and follow-up with her primary care provider for reinitiation of antihypertensives. Advised to continue with physical therapy. Attestations Medical Necessity Statement*: Discharge as per orthopedic team. Time Spent in Patient Care: 16 - 35 minutes Coding Level of Care Code Acute Sat Tutor for Anahy Cruz Diagnoses Hip fracture S72.009A Femoral neck fracture S72.009A
[2021-11-16 12:11] VITALS: BP 113/74; PULSE 76; RESP 17; TEMP 36.7; O2SAT 93
== END 2021-11-16 12:12 | disposition home health service (06) | DRG 522 ==
LOC: ER 22:33 → MEDSURG 23:17
PROVIDERS: Orthopaedic Surgery; Admitting Provider Internal Medicine; Emergency Provider Emergency Medicine; PCP Family Medicine; Visit Provider Student in an Organized Health Care Education/Training Program
PROC: 0SR90J9 Replacement of Right Hip Joint with Synthetic Substitute, Cemented, Open Approach (ICD-10-PCS; CPT 27130; principal; 2021-11-15 07:00)
DX: S72.001A Fracture of unspecified part of neck of right femur, initial encounter for closed fracture (principal); W01.0XXA Fall on same level from slipping, tripping and stumbling without subsequent striking against object, initial encounter; I10 Essential (primary) hypertension; R01.1 Cardiac murmur, unspecified; L40.0 Psoriasis vulgaris; Z79.82 Long term (current) use of aspirin
CPT/HCPCS: 36415; 51702; 73501; 73502; 73700; 80048; 80053; 80061; 81003; 83036; 83540; 83550; 83735; 84100; 84443; 85018; 85025; 85049; 85384; 85610; 85730; 93005; 93306; 94664; 97116; 97161; 97166; 97530; 99285; C1713; C1776; J0690; J2250; J2370; J2704; J3010; J7030; P9041

== ENCOUNTER → 2021-12-18 09:39 | Outpatient (BNVA) | payer MEDICARE, SELFPAY | PROVIDERS: PCP Family Medicine; Visit Provider Orthopaedic Surgery | DX: Z96.641 Presence of right artificial hip joint (principal) | CPT/HCPCS: 73502 ==

== ENCOUNTER → 2022-01-22 08:17 | Outpatient (BNVA) | payer MEDICARE, SELFPAY | PROVIDERS: PCP Family Medicine; Visit Provider Orthopaedic Surgery | DX: Z96.641 Presence of right artificial hip joint (principal) | CPT/HCPCS: 99024 ==

== ENCOUNTER 2023-01-21 19:26 | Emergency (ER) | payer MEDICARE, SELFPAY ==
[2023-01-21] VITALS (13 sets, daily range): BP systolic 86–138; BP diastolic 50–88; PULSE 49–84; RESP 16–21; TEMP 36.6; O2SAT 81–100; BMI 32.2
--- NOTE | 2023-01-21 19:28 | XRR_ITS ---
PROCEDURE INFORMATION: Exam: XR Chest Exam date and time: 01/21/2023 7:42 PM Age: 72 years old Clinical indication: Pain; Chest pressure; Additional info: Cp TECHNIQUE: Imaging protocol: Radiologic exam of the chest. Views: 1 view. COMPARISON: No relevant prior studies available. FINDINGS: Lungs: Unremarkable. No consolidation. Pleural spaces: Unremarkable. No pleural effusion. No pneumothorax. Heart/Mediastinum: Unremarkable. No cardiomegaly. Bones/joints: Unremarkable. XR/XR chest 1V portable [id number] IMPRESSION: No acute findings.
--- NOTE | 2023-01-21 19:28 | ECG_ITS ---
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 Measurements Intervals [place] Rate: 48 P: 24 [place]: 173 QRS: 23 QRSD: 74 T: 70 QT: 421 QTc: 378 Interpretive Statements SINUS BRADYCARDIA LOW QRS VOLTAGE IN PRECORDIAL LEADS [QRS DEFLECTION < 1.0 mV IN CHEST LEADS] NONSPECIFIC T-WAVE ABNORMALITY Compared to ECG 11/13/2021 21:29:33 Low QRS voltage now present T-wave abnormality now present Sinus rhythm no longer present Electronically Signed On 01-23-2023 10:04:13 CDT by Beto Frances M.D. [id number]
--- NOTE | 2023-01-21 19:35 | W.ED.CHESTPA ---
HPI - Chest Pain General: Chief Complaint: Chest Pain Stated Complaint: CP Time Seen by Provider: 01/21/23 19:28 Source: patient and EMS Mode of arrival: EMS Limitations: no limitations History of Present Illness: 72-year-old female states she started having some chest pain roughly an hour ago states she had a bandlike pressure type pain through her chest she was given nitro states it did improve her pain but she became nauseous vomited got bradycardic they took her nitro off states her pain is currently a 2 out of 10 denies any shortness of breath. Associated symptoms: Deny abdominal pain, dyspnea, fever(s), nausea or vomiting Review of Systems Const: Denies: fever(s), chills or body aches Eyes: Denies: eye discomfort ENMT: Denies: throat pain or dental pain Card: Reports: chest pain Resp: Denies: dyspnea GI: Denies: abdominal pain, nausea, vomiting or diarrhea Musc: Denies: neck pain or back pain Skin/Breast: Denies: rash Neuro: Denies: headache(s) PFSH ED PFSH: Medical History HTN (hypertension) No pertinent past medical history Psoriasis Surgical History No history of previous surgery Family History Denies family history of Diabetes Cancer Social History Smoking and tobacco status: never smoked Alcohol intake: never Substance/Drug Use: never Physical Exam Const: COMMON NORMALS: patient oriented x3 HENMT: COMMON NORMALS: normocephalic and atraumatic HEAD & SCALP: normocephalic and atraumatic Eye: COMMON NORMALS: Equal, round and reactive pupils present and EOMs intact bilaterally PUPIL: Yes Equal, round and reactive pupils present Neck/C-Spine: COMMON NORMALS: full ROM and supple Chest: COMMONS NORMALS: normal inspection of the chest and normal palpation of entire chest wall Resp: COMMON NORMALS: normal respiratory effort, No retractions, No use of accessory muscles and clear to auscultation bilaterally AUSCULTATION: clear to auscultation bilaterally Cardio: COMMON NORMALS: regular rate, regular rhythm and No murmurs present (Cardio) RATE: regular rate RHYTHM: regular rhythm GI: COMMON NORMALS: Normal to inspection, nondistended, normoactive bowel sounds present, Soft to palpation, non-tender and no masses PALPATION: Yes Soft to palpation Extremity: COMMON NORMALS: normal to inspection and full ROM Neuro: COMMON NORMALS: patient oriented x3, moves all extremities and no focal motor deficits Psych: COMMON NORMALS: mental status grossly normal, Normal thought process present and cooperative THOUGHT PROCESS: Normal thought process present Skin: COMMON NORMALS: no rashes or lesions noted and no wounds GENERAL SKIN EXAM: no rashes or lesions noted Course Vital Signs: Vital signs: Vital Signs Temperature 97.8 F 01/21/23 19:30 Pulse Rate 75 01/21/23 21:30 Respiratory Rate 19 H 01/21/23 20:30 Blood Pressure 116/78 01/21/23 21:30 Pulse Oximetry 96 01/21/23 21:30 Oxygen Delivery Me thod Room Air 01/21/23 20:08 MDM - Chest Pain Medical Decision Making Patient presents here with abdominal pain along with some chest pain it appears to be more abdomen related she complains of epigastric pain she has some mild tenderness CT of her abdomen is normal blood work here is all normal both troponins are normal I do not believe her pain is cardiac in origin she does feel improved here we will write her Protonix along with Zofran as she has had some nausea and vomiting as well she is to follow-up with her PCP and return if worsening. Medical Records I reviewed the patient's medical records. Lab Data I reviewed the patient's lab results. 01/21/23 19:38 01/21/23 19:38 Radiology Impressions Chest X-Ray 01/21/23 19:28 IMPRESSION: No acute findings. Abdomen/Pelvis CTA 01/21/23 20:00 IMPRESSION: There are no acute concerning abnormalities. Laboratory Results WBC 10.7 10^3/uL (4.0-10.0) H 01/21/23 19:38 RBC 4.60 10^6/uL (4.1-5.3) 01/21/23 19:38 Hgb 13.2 g/dL (11.5-15.3) 01/21/23 19:38 Hct 41.1 % (37.0-47.0) 01/21/23 19:38 MCV 89.3 fl (81-99) 01/21/23 19:38 MCH 28.7 pg (28.0-34.0) 01/21/23 19:38 MCHC 32.1 g/dL (30.0-36.0) 01/21/23 19:38 RDW 13.2 % (12.1-15.1) 01/21/23 19:38 Plt Count 206 10^3/cmm (130-400) 01/21/23 19:38 MPV 11.1 fL (7.4-10.4) H 01/21/23 19:38 Neut % (Auto) 37.9 % 01/21/23 19:38 Lymph % (Auto) 49.5 % 01/21/23 19:38 [place] % (Auto) 7.6 % 01/21/23 19:38 Eos % (Auto) 4.1 % 01/21/23 19:38 Baso % (Auto) 0.6 % 01/21/23 19:38 Neut # (Auto) 4.06 10^3/uL (1.8-7.7) 01/21/23 19:38 Lymph # (Auto) 5.3 10^3/uL (0.8-4.8) H 01/21/23 19:38 [place] # (Auto) 0.8 10^3/uL (0.2-0.9) 01/21/23 19:38 Eos # (Auto) 0.4 10^3/uL (0.0-0.8) 01/21/23 19:38 Baso # (Auto) 0.1 10^3/uL (0.0-0.1) 01/21/23 19:38 Nucleated RBC % (auto) 0 % 01/21/23 19:38 Nucleated RBCs # 0.0 /100WBC 01/21/23 19:38 PT 13.30 SECONDS (12.1-14.9) 01/21/23 19:38 INR 0.98 (0.8-1.2) 01/21/23 19:38 Sodium 139 mmol/L (136-145) 01/21/23 19:38 Potassium 3.6 mmol/L (3.5-5.1) 01/21/23 19:38 Chloride 104 mmol/L (98-107) 01/21/23 19:38 Carbon Dioxide 25 mmol/L (22-29) 01/21/23 19:38 Anion Gap 13.6 (5-19) 01/21/23 19:38 BUN 19 mg/dL (8-23) 01/21/23 19:38 Creatinine 0.9 mg/dL (0.5-0.9) 01/21/23 19:38 GFR Calculation Not Reportable 01/21/23 19:38 Glucose 97 mg/dL (65-115) 01/21/23 19:38 Calculated Osmolality 290 mOsm/kg (285-295) 01/21/23 19:38 Calcium 8.9 mg/dL (8.5-10.5) 01/21/23 19:38 Total Bilirubin 0.6 mg/dL (0.15-1.2) 01/21/23 19:38 AST 23 U/L (0-32) 01/21/23 19:38 ALT 16 U/L (0-33) 01/21/23 19:38 Alkaline Phosphatase 56 U/L (35-105) 01/21/23 19:38 Troponin T Baseline 7 ng/L (0-10) 01/21/23 19:38 Troponin T 120 Minute 7.06 ng/L (0-10) 01/21/23 21:20 Delta Troponin T 0.06 ABS# (0-10) 01/21/23 21:20 Total Protein 6.6 g/dL (6.6-8.7) 01/21/23 19:38 Albumin 3.8 g/dL (3.5-5.2) 01/21/23 19:38 Globulin 2.8 g/dL (1.3-4.6) 01/21/23 19:38 Lipase 57 U/L (13-60) 01/21/23 19:38 EKG Data EKG 1: I personally reviewed and interpreted this EKG as follows: EKG interpretation date: 01/21/23 EKG interpretation time: 19:40 Interpretation: sinus elodia hr [address] or t wave abnormalities qrs 74 qtc 388 Discharge Plan Discharge Patient Disposition: Home Clinical Impression: Abdominal pain, Chest pain Condition: Stable Prescriptions: New hydrocodone-acetaminophen 5-325 mg tablet 1 tab PO Q6H PRN (Reason: pain) Qty: 14 0RF Protonix 40 mg tablet,delayed release (DR/EC) 40 mg PO DAILY Qty: 60 0RF ondansetron 4 mg tablet,disintegrating 4 mg PO Q6H PRN (Reason: nausea and vomiting) Qty: 14 0RF No Action albuterol sulfate 0.63 mg/3 mL Solution For Nebulization 0.63 mg INHALATION Q6H PRN (Reason: Shortness Of Breath) amlodipine 10 mg Tablet 10 mg PO DAILY Hold Instructions: Resume on 11/23/21. hydrochlorothiazide 25 mg tablet 25 mg PO DAILY Hold Instructions: Resume on 11/30/21. ProAir HFA 90 mcg/actuation Hfa Aerosol Inhaler 2 puff INHALATION QID PRN (Reason: Shortness Of Breath) aspirin 81 mg Tablet,Delayed Release (Dr/Ec) 81 mg PO DAILY Vitamin D3 25 mcg (1,000 unit) Capsule 25 mcg PO DAILY Discharge Orders: Discharge ED (Routine); Ordered 01/21/23 Ordered By: Yuli Henson Referrals: Leda Guillen DO [Primary Care Provider] - 1-3 days Discharge Diet: Advance as tolerated Discharge Activity: Resume usual activity Patient Instructions: Abdominal Pain (ED), Opioid Safety Coding Level of Care Code ED Production Control Expert for Anahy Cruz
[2023-01-21 19:55] LABS: Basophils # 0.1 10^3/uL (0.0-0.1); Basophils % 0.6 %; Eosinophils # 0.4 10^3/uL (0.0-0.8); Eosinophils % 4.1 %; Hematocrit 41.1 % (37.0-47.0); Hemoglobin 13.2 g/dL (11.5-15.3); Lymphocytes # 5.3 10^3/uL (0.8-4.8); Lymphocytes % 49.5 %; Mean Corpuscular HGB Conc 32.1 g/dL (30.0-36.0); Mean Corpuscular Hemoglobin 28.7 pg (28.0-34.0); Mean Corpuscular Volume 89.3 fl (81-99); Mean Platelet Volume 11.1 fL (7.4-10.4); Monocytes # 0.8 10^3/uL (0.2-0.9); Monocytes % 7.6 %; Neutrophils # 4.06 10^3/uL (1.8-7.7); Neutrophils % 37.9 %; Nucleated Red Blood Cells % 0 %; Platelet Count 206 10^3/cmm (130-400); Red Cell Distribution Width 13.2 % (12.1-15.1); White Blood Count 10.7 10^3/uL (4.0-10.0)
--- NOTE | 2023-01-21 20:00 | CTR_ITS ---
PROCEDURE INFORMATION: Exam: CTA Abdomen and Pelvis With Contrast Exam date and time: 01/21/2023 9:05 PM Age: 72 years old Clinical indication: Chest pressure; Abdominal pain; Generalized; Additional info: Cp/abd pain TECHNIQUE: Imaging protocol: Computed tomographic angiography of the abdomen and pelvis with contrast. Exam focused on the arteries. 3D rendering (Not supervised by radiologist): MIP and/or 3D reconstructed images were created by the technologist. Radiation optimization: All CT scans at this facility use at least one of these dose optimization techniques: automated exposure control; mA and/or kV adjustment per patient size (includes targeted exams where dose is matched to clinical indication); or iterative reconstruction. Contrast material: OMNI 350; Contrast volume: 100 ml; Contrast route: INTRAVENOUS (IV); REPORTING DATA: Count of CT and Cardiac NM exams in prior 12 months: This patient has received 0 known CTs and 0 known cardiac nuclear medicine studies in the 12 months prior to the current study. COMPARISON: CR XR hip RT 2-3V wo/w pel* [id number] 12/18/2021 10:00 AM RADIATION DOSE METRICS: Total DLP (mGy-cm): 816.26 Other radiation dose metrics: VASCULATURE: FINDINGS: Heart: Unremarkable. No cardiomegaly. No pericardial effusion. Aorta: No aortic aneurysm. No aortic dissection. Celiac trunk and mesenteric arteries: No occlusion or significant stenosis. Renal arteries: No occlusion or significant stenosis. Right iliac arteries: No occlusion or significant stenosis. Left iliac arteries: No occlusion or significant stenosis. Liver: No mass. Gallbladder and bile ducts: Unremarkable. No calcified stones. No ductal dilation. Pancreas: Unremarkable. No mass. No ductal dilation. Spleen: Unremarkable. No splenomegaly. Adrenal glands: Unremarkable. No mass. Kidneys and ureters: Unremarkable. No solid mass. No hydronephrosis. Stomach and bowel: There is a moderate hiatal hernia containing stomach. No bowel obstruction. Appendix: The appendix is visualized and appears normal. Intraperitoneal space: No abscess or free air. Lymph nodes: Unremarkable. No enlarged lymph nodes. Urinary bladder: Unremarkable. No mass. Reproductive: Unremarkable as visualized. Bones/joints: There has been right hip replacement which results in streak artifact. Degenerative change is identified in the spine. There is no evidence for acute fracture or malalignment. Soft tissues: Unremarkable. CT/CT angio abdomen pelvis [id number] IMPRESSION: There are no acute concerning abnormalities.
[2023-01-21] MEDS: ondansetron 2 mg/ML SDV 2 mL 4 MG IVP ×2 (20:03→22:39)
[2023-01-21] MEDS: morphine 4 mg/mL SDV 1 mL IVP ×2 (20:04→22:39)
[2023-01-21 20:18] LABS: Alanine Aminotransferase 16 U/L (0-33); Albumin Level 3.8 g/dL (3.5-5.2); Alkaline Phosphatase 56 U/L (35-105); Anion Gap 13.6 (5-19); Aspartate Amino Transferase 23 U/L (0-32); Blood Urea Nitrogen 19 mg/dL (8-23); Calcium 8.9 mg/dL (8.5-10.5); Carbon Dioxide 25 mmol/L (22-29); Chloride 104 mmol/L (98-107); Globulin 2.8 g/dL (1.3-4.6); Glucose 97 mg/dL (65-115); Lipase 57 U/L (13-60); Osmolality Calculated 290 mOsm/kg (285-295); Potassium 3.6 mmol/L (3.5-5.1); Sodium 139 mmol/L (136-145); Total Bilirubin 0.6 mg/dL (0.15-1.2); Total Protein 6.6 g/dL (6.6-8.7)
[2023-01-21 20:19] LABS: Troponin(5th) Baseline 7 ng/L (0-10)
[2023-01-21 20:26] LABS: INR 0.98 (0.8-1.2)
[2023-01-21] MEDS: iohexol 350 mg/mL 500 mL Btl (per mL) IV (21:08)
--- NOTE | 2023-01-21 21:28 | ECG_ITS ---
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 Measurements Intervals [place] Rate: 49 P: 33 [place]: 174 QRS: 28 QRSD: 72 T: 68 QT: 428 QTc: 388 Interpretive Statements SINUS BRADYCARDIA LOW QRS VOLTAGE IN PRECORDIAL LEADS [QRS DEFLECTION < 1.0 mV IN CHEST LEADS] SEPTAL MYOCARDIAL INFARCTION , PROBABLY OLD [40+ ms Q WAVE IN V1/V2] Compared to ECG 01/21/2023 19:40:04 Myocardial infarct finding now present T-wave abnormality no longer present Electronically Signed On 01-23-2023 12:32:43 CDT by Shelli Singer M.D. [id number]
[2023-01-21 22:01] LABS: Troponin 5 2HR 7.06 ng/L (0-10)
[2023-01-21 22:06] LABS: Troponin 5 2HR Delta 0.06 ABS# (0-10)
== END 2023-01-21 22:48 | disposition home or self-care (01) ==
PROVIDERS: Emergency Provider Emergency Medicine; PCP Family Medicine
DX: R07.9 Chest pain, unspecified (principal); R10.9 Unspecified abdominal pain; I10 Essential (primary) hypertension; Z79.82 Long term (current) use of aspirin
CPT/HCPCS: 36415; 71045; 74174; 80053; 83690; 84484; 85025; 85610; 93005; 96374; 96375; 96376; 99285; J2270; J2405; Q9967

== ENCOUNTER → 2025-06-13 09:34 | Outpatient (BNVA) | payer MEDICARE, SELFPAY | PROVIDERS: PCP Family Medicine; Visit Provider Dermatology | DX: D04.9 Carcinoma in situ of skin, unspecified (principal); L30.0 Nummular dermatitis; L82.1 Other seborrheic keratosis; L57.0 Actinic keratosis | CPT/HCPCS: 17000; 99204 ==